=== PATIENT | male | born 1990 | race Two or more races ===

== ENCOUNTER 2020-12-25 02:29 | Emergency (ER) | payer BC ==
[~2020-12-25] VITALS: Ht 167.6 cm; Wt 83.9 kg
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
[2020-12-25] MEDS ORDERED: IBUPROFEN 400 MG TABLET ONE (03:09)
[2020-12-25] MEDS ORDERED: IBUPROFEN 400 MG TABLET PO ONE (03:30)
[2020-12-25 03:52] VITALS: BP 133/77
--- NOTE | 2020-12-25 03:52 | NUR ---
Patient discharged to home in stable condition. Written and verbal after care instructions given. Patient verbalizes understanding of instruction.
== END 2020-12-25 03:55 | disposition home or self-care (01) ==
LOC: ER 02:38
DX: S00.90XA Unspecified superficial injury of unspecified part of head, initial encounter (principal); V49.49XA Driver injured in collision with other motor vehicles in traffic accident, initial encounter; Y93.89 Activity, other specified; Y92.413 State road as the place of occurrence of the external cause; Y99.8 Other external cause status
CPT/HCPCS: 70450-TC